=== PATIENT | female | born 1995 | race African-American/Black ===

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

== ENCOUNTER 2017-03-01 04:41 | Emergency (ER) | payer MEDICAID ==
--- NOTE | ~2017-03-01 | CR126 ---
[facility] A Service of [facility] & [facility] RADIOLOGY TEXT RESULTS PATIENT: TIANA MONROY LOCATION: [facility] : [birth year] UNIT #: [id number] AGE: [address]: DENNIS HENDRICKS APRN SEX: F ORDER DR: [id number] [facility] [address]. [place], [place] [address] [id number] MR#: [id number] Acc #: [id number] NAME: TIANA MONROY : 1995 SEX: F STUDY DATE/TIME: 03/01/2017 05:35 UNIT: [facility] ROOM: STUDY DESCRIPTION: CR Foot Complete Min 3 View Lt Attending Physician: Dennis Hendricks Aprn Ordering Physician: Dennis Hendricks Aprn Primary Care Physician: No Primary Care Physician MEDICAL IMAGING REPORT This report is preliminary unless electronic signature is present EXAM Left foot 03/01 at 535. INDICATIONS Laceration on the bottom of the foot after stepping on a candle tonight. Foot pain. Possible foreign body. FINDINGS Three views of the left foot were obtained. There is no fracture malalignment. There are no radiopaque foreign bodies. IMPRESSION Normal left foot. No foreign body identified. Dictated by... Chris Carballo Jr., M.D. THIS IS AN ELECTRONICALLY VERIFIED REPORT Chris Carballo Jr., M.D. at 03/01/2017 7:22 PM ROSANNE/bin TD: 03/01/2017 08:03 JOB #: [id number] MEDICAL IMAGING REPORT Page 1 of 1 COPY
== END 2017-03-01 07:00 | disposition home or self-care (01) ==
LOC: CED 04:41
DX: S91.312A Laceration without foreign body, left foot, initial encounter (principal); G43.909 Migraine, unspecified, not intractable, without status migrainosus; F41.9 Anxiety disorder, unspecified; W22.8XXA Striking against or struck by other objects, initial encounter; Y92.009 Unspecified place in unspecified non-institutional (private) residence as the place of occurrence of the external cause
CPT/HCPCS: 73630; 99283